=== PATIENT | male | born 1965 | race Caucasian/White ===

== ENCOUNTER 2018-01-18 12:55 | Emergency (ER) | payer OTHER ==
[2018-01-18 13:04] VITALS: BP 151/90
--- NOTE | 2018-01-18 13:26 | ED Physician Documentation ---
PD HPI OPHTHO - Stated complaint Stated Complaint: R EYE IRRITATION - Chief complaint Chief Complaint: Heent - History obtained from History obtained from: Patient - History of Present Illness Timing - onset: Today Timing - duration: Hours Timing - details: Abrupt onset (had some sand into right eye and he tried to irrigate it out couple of times. Still with feeling of sand persisting in right eye.) Location: Right Quality / character: Aching Associated symptoms: Redness, Tearing Contributing factors: FB. No: Exposed to conjunctivitis, Wears contacts Similar symptoms before: Has not had sx before Review of Systems Eyes: reports: Irritation. denies: Loss of vision, Decreased vision, Photophobia, Discharge Nose: denies: Rhinorrhea / runny nose, Congestion Throat: denies: Sore throat Respiratory: denies: Cough Skin: denies: Rash, Lesions PD PAST MEDICAL HISTORY - Past Medical History Past Medical History: No Cardiovascular: Hypertension Respiratory: None Neuro: None Endocrine/Autoimmune: None GI: None : None HEENT: None Psych: None Musculoskeletal: None Derm: None - Past Surgical History Past Surgical History: Yes Ortho: Arthroscopic surgery - Allergies Allergies/Adverse Reactions: Allergies Allergy/AdvReac Type Severity Reaction Status Date / Time No Known Drug Allergies Allergy Verified 01/18/18 13:04 - Social History Does the pt smoke?: No Smoking Status: Never smoker Does the pt drink ETOH?: No Does the pt have substance abuse?: No - Immunizations Immunizations are current?: Yes - POLST Patient has POLST: No PD ED PE NORMAL - Vitals Vital signs reviewed: Yes - General General: Alert and oriented X 3, Well developed/nourished PD ED PE EXPANDED - Eyes Eyes: EOMI, Right eye, No eyelid FB (everted), Injected conj/sclera, Corneal abrasion (lateral aspect), Other (hyperemia right eye. No FB seen. ). No: Corneal FB, Ant chamber cells/flare Results - Vitals Vitals: Oxygen O2 Source Room air PD MEDICAL DECISION MAKING - ED course Complexity details: considered differential (redness right eye from presume irritation of cleansing out eye and could be local reaction to FB. No residual FB seen.), d/w patient Departure - Departure Disposition: 01 Home, Self Care Clinical Impression: Corneal abrasion Qualifiers: Encounter type: initial encounter Laterality: right Qualified Code(s): S05.01XA - Injury of conjunctiva and corneal abrasion without foreign body, right eye, initial encounter Conjunctivitis Qualifiers: Conjunctivitis type: acute Acute conjunctivitis type: unspecified Laterality: right Qualified Code(s): H10.31 - Unspecified acute conjunctivitis, right eye Condition: Stable Record reviewed to determine appropriate education?: Yes Instructions: ED Eye Injury Corneal Abrasion Comments: There is a corneal abrasion there. There are a couple of specks of sand under the upper eyelid that I think I got out. This should get better through the day today and into tomorrow. Recheck if not better by tomorrow. There is some redness and inflammation of the eye from the irritation. That should improve as well. Use the eyedrops periodically if needed for comfort. Stay out of the wind and dust and do not allow anything else in the eye if you are using those. Do not use them beyond a day or so as if you are still having discomfort you need to recheck. Tylenol or ibuprofen if needed for pains. Discharge Date/Time: 01/18/18 13:53
== END 2018-01-18 13:53 | disposition home or self-care (01) ==
LOC: ED 12:55
DX: S05.01XA Injury of conjunctiva and corneal abrasion without foreign body, right eye, initial encounter (principal); H10.31 Unspecified acute conjunctivitis, right eye; I10 Essential (primary) hypertension; X58.XXXA Exposure to other specified factors, initial encounter
CPT/HCPCS: 99282